=== PATIENT | male | born 1960 | race Caucasian/White ===

== ENCOUNTER → 2024-10-23 12:10 | Outpatient (CLI) | payer OTHER, SELFPAY ==
--- NOTE | 2024-10-23 12:15 | DI.RAD.S_ITS ---
PROCEDURE: XR HAND RT MIN 3V INDICATIONS: THUMB PAIN TECHNIQUE: Four views of the right hand and thumb s) acquired. COMPARISON: None. 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 There is mild degeneration in all interphalangeal joints Soft tissues: No soft tissue abnormality. IMPRESSION: Degeneration Dictated by: Chang Goldman M.D. on 10/24/2024 at 11:38 Approved by: Chang Goldman M.D. on 10/24/2024 at 11:39
== END ==
PROVIDERS: PCP Family Medicine; Referring Provider Family Medicine; Visit Provider Family Medicine
DX: M18.11 Unilateral primary osteoarthritis of first carpometacarpal joint, right hand (principal); M19.041 Primary osteoarthritis, right hand; M79.644 Pain in right finger(s); G89.29 Other chronic pain
CPT/HCPCS: 73130